=== PATIENT | male | born 1975 | race Caucasian/White ===

== ENCOUNTER → 2023-05-25 | Outpatient (REF) | LOC: M PLAIMG 11:00 | PROVIDERS: ATTEND Internal Medicine | DX: R52 Pain, unspecified (principal) ==

== ENCOUNTER → 2023-05-28 | Outpatient (CLI) | payer OTHER | LOC: M RAD 15:16 | PROVIDERS: ATTEND Physician Assistant | DX: I10 Essential (primary) hypertension (principal); R07.9 Chest pain, unspecified ==